=== PATIENT | female | born 1970 | race Native Hawaiian/Other Pacific Islander ===

== ENCOUNTER 2018-02-11 17:26 | Outpatient (RCR) | payer OTHER ==
[2018-02-11] VITALS (8 sets, daily range): BP systolic 98–115; BP diastolic 63–83; PULSE 62–78; TEMP 97.6–98.4
[~2018-02-11] VITALS: Ht 152.4 cm; Wt 43.0 kg
[2018-02-12] VITALS: BP 113/84; PULSE 65; TEMP 98.4
[2018-02-12 01:46] LABS: BASO % 0.5 % (0.0-2.0); EOS # 0.3 (0.0-0.7); EOS % 5.9 % (0-4.0); GRAN # 4.5 (1.4-6.5); GRAN % 77.7 % (42.2-75.2); LYMPH # 0.4 (1.2-3.4); LYMPH % 7.6 % (20.0-51.0); MEAN CELL VOLUME 79 fl (80.0-100.0); MEAN CORPUSCULAR HGB CONC 31 g/dl (33.0-37.0); MEAN PLATELET VOLUME 8.6 fl (7.4-10.4); MONO # 0.5 (0.1-0.6); MONO % 8.1 % (1.7-9.3); PLATELET COUNT 256 K/mm3 (130-400); RED BLOOD COUNT 3.99 M/mm3 (4.10-5.30); REDCELL DISTRIBUTION WIDTH-CV 22.1 % (11.5-14.5)
[2018-02-12 01:54] LABS: HEMATOCRIT 31.6 % (37.0-47.0); HEMOGLOBIN 9.9 g/dl (12.5-16.0); MEAN CORPUSCULAR HEMOGLOBIN 25 pg (27.0-31.0)
== END 2018-02-12 01:30 | disposition home or self-care (01) ==
LOC: EUO 17:26
PROVIDERS: Radiology Radiation Oncology
DX: C20 Malignant neoplasm of rectum (principal); Z80.3 Family history of malignant neoplasm of breast
CPT/HCPCS: J7050; P9016